=== PATIENT | male | born 1955 | race Caucasian/White ===

== ENCOUNTER 2017-04-20 07:38 | Emergency (ER) | payer OTHER ==
[2017-04-20] MEDS ORDERED: Diltiazem 180 MG Cap.CD PO ONE (08:03)
[2017-04-20] MEDS ORDERED: Diltiazem 25 MG/5 ML SDV IVPUSH ONE ×2 (08:03→09:23)
--- NOTE | 2017-04-20 08:07 | EDM.PDOC ---
ED HPI GENERAL MEDICAL PROBLEM - General Chief Complaint: Cardiovascular Problem Stated Complaint: AFIB Time Seen by Provider: 04/20/17 08:01 Source of Information: Reports: Patient, Family (spouse) History Limitations: Reports: No Limitations - History of Present Illness INITIAL COMMENTS - FREE TEXT/NARRATIVE: 61-year-old male presents to the ED with recurrent or breakthrough atrial fibrillation. Patient states his heart has been going in and out of atrial fibrillation since last April 15. States was quite bad all day yesterday with high rate. He does have some mild left precordial chest discomfort and shortness of breath. Patient has a history of chronic atrial fibrillation dating back to 2004. He had a ablation carried out in 2004 which was not successful in controlling rate. Second ablation was carried out in 2005 and he's been relatively good with occasional C breakthrough atrial fibrillation every few years since that time. He remains on sotalol 120 mg twice daily and coenzyme 1 80 mg CD daily. He is on a magnesium supplement, a statin and is on Eliquis twice a day. Does not feel dizzy or lightheaded when standing. Feels weak and extremities. Denies cough or sputum production. Onset: Unknown/Unsure Onset Date: 04/15/17 Duration: Day(s):, Intermittent, Waxing/Waning Location: Reports: Chest Quality: Reports: Same as Previous Episode Severity: Moderate Improves with: Reports: None Worsens with: Reports: None Context: Denies: Activity, Exercise, Lifting, Sick Contact, Trauma, Other Associated Symptoms: Reports: Chest Pain, Malaise. 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 Has been taking all of his normal medications as prescribed. No medications have been changed for several years.) - Related Data Allergies Allergy/AdvReac Type Severity Reaction Status Date / Time niacin Allergy Itching Verified 04/20/17 07:47 nortriptyline Allergy Other Verified 04/20/17 07:47 Home Meds: Home Meds Diltiazem HCl [Cardizem Cd] 360 mg PO DAILY #30 cap.er.24h 04/20/17 [Rx] Past Medical History Cardiovascular History: Reports: Afib (At ablation carried out 2004 and again in 2005 for atrial fibrillation. Intermittent. Is on Eliquis.), Arrhythmia, Hypertension Respiratory History: Reports: COPD Genitourinary History: Reports: BPH Musculoskeletal History: Reports: Osteoarthritis Social & Family History - Living Situation & Occupation Living situation: Reports: Occupation: Employed ED ROS GENERAL - Review of Systems Review Of Systems: See Below Constitutional: Reports: Weakness, Fatigue, Decreased Appetite. Denies: Fever, Chills, Malaise, Weight Loss HEENT: Reports: No Symptoms Respiratory: Reports: Shortness of Breath Cardiovascular: Reports: Chest Pain, Blood Pressure Problem (Mild left precordial chest discomfort.), Dyspnea on Exertion, Edema, Palpitations (Mild lower extremity edema.). Denies: Claudication, Orthopnea ( It has been elevated as of late) Endocrine: Reports: Fatigue GI/Abdominal: Reports: No Symptoms : Reports: Frequency, Other (Nocturia 3) Musculoskeletal: Reports: Joint Pain Skin: Reports: No Symptoms, Bruising Neurological: Reports: No Symptoms. Denies: Confusion, Dizziness, Headache, Numbness Psychiatric: Reports: No Symptoms Hematologic/Lymphatic: Reports: No Symptoms Immunologic: Reports: No Symptoms ED EXAM, GENERAL - Physical Exam Exam: See Below Exam Limited By: No Limitations General Appearance: Alert, WD/WN, No Apparent Distress Eye Exam: Bilateral Eye: Normal Inspection Throat/Mouth: Normal Inspection, Normal Lips, Normal Teeth, Normal Gums, Normal Oropharynx Head: Atraumatic, Normocephalic Neck: Normal Inspection, Supple, Non-Tender, Full Range of Motion. No: Lymphadenopathy (L), Lymphadenopathy (R) Respiratory/Chest: No Respiratory Distress, Lungs Clear, Normal Breath Sounds Cardiovascular: No Edema, No Gallop, Tachycardia (Current rate is 1 36/m.), Irregularly Irregular Peripheral Pulses: 1+: Posterior Tibial (L), Posterior Tibial (R), Dorsalis Pedis (L), Dorsalis Pedis (R) GI/Abdominal: Normal Bowel Sounds, Soft, Non-Tender, No Organomegaly Back Exam: Normal Inspection, Full Range of Motion. No: CVA Tenderness (L), CVA Tenderness (R) Extremities: Normal Inspection, Normal Range of Motion, Non-Tender, No Pedal Edema Neurological: Alert, Oriented, CN II-XII Intact, Normal Cognition, Normal Gait Psychiatric: Normal Affect, Normal Mood Skin Exam: Warm, Dry, Intact, Normal Color, No Rash EKG INTERPRETATION EKG Date: 04/20/17 Time: 07:50 Rhythm: A-Fib Rate (Beats/Min): 123 [place]: RAD-Right [place] Deviation P-Wave: Absent QRS: RBBB ST-T: Other (Excessively wondering baseline.) QT: Prolonged (Mildly prolonged) Course - Vital Signs Last Recorded V/S: Last Vital Signs Temp 36.9 C 04/20/17 07:47 Pulse 134 H 04/20/17 07:47 Resp 18 04/20/17 07:47 BP 133/115 H 04/20/17 07:47 Pulse Ox 94 L 04/20/17 07:47 - Orders/Labs/Meds Orders: Active Orders 24 hr Category Date Time Status EKG Documentation Completion [RC] ASDIRECTED Care 04/20/17 09:55 Active Sodium Chloride 0.9% [Normal Saline] 1,000 ml Med 04/20/17 08:15 Active IV ASDIRECTED EKG 12 Lead [EK] Stat Ther 04/20/17 09:54 Ordered Medication Orders Sodium Chloride (Normal Saline) 1,000 mls @ 100 mls/hr IV ASDIRECTED TERESO Last Admin: 04/20/17 08:46 Dose: 100 mls/hr Labs: Laboratory Tests 04/20/17 04/20/17 Range/Units 08:12 08:12 WBC 6.82 (4.23-9.07) K/mm3 RBC 5.74 (4.63-6.08) M/mm3 Hgb 17.4 (13.7-17.5) gm/L Hct 50.0 (40.1-51.0) % MCV 87.1 (79.0-92.2) fl MCH 30.3 (25.7-32.2) pg MCHC 34.8 (32.2-35.5) g/dl RDW Std Deviation 40.1 (35.1-43.9) fL Plt Count 212 (163-337) K/mm3 MPV 10.5 (9.4-12.3) fl Neutrophils % (Manual) 55 (40-60) % Band Neutrophils % 0 (0-10) % Lymphocytes % (Manual) 40 (20-40) % Atypical Lymphs % 0 % Monocytes % (Manual) 4 (2-10) % Eosinophils % (Manual) 1 (0.8-7.0) % Basophils % (Manual) 0 L (0.2-1.2) Platelet Estimate Adequate RBC Morph Comment Normal Sodium 138 (136-145) mEq/L Potassium 3.8 (3.5-5.1) mEq/L Chloride 103 (98-107) mEq/L Carbon Dioxide 23 (21-32) mEq/L Anion Gap 15.8 H (5-15) BUN 22 H (7-18) mg/dL Creatinine 1.2 (0.7-1.3) mg/dL Est Cr Clr Drug Dosing 76.28 mL/min Estimated GFR (MDRD) > 60 (>60) mL/min BUN/Creatinine Ratio 18.3 H (14-18) Glucose 117 H (80-115) mg/dL Calcium 9.3 (8.5-10.1) mg/dL Magnesium 1.9 (1.8-2.4) mg/dl Total Bilirubin 1.0 (0.2-1.0) mg/dL AST 26 (15-37) U/L ALT 32 (16-63) U/L Alkaline Phosphatase 81 (46-116) U/L NT-Pro-B Natriuret Pep 733 H (0-125) pg/mL Total Protein 7.1 (6.4-8.2) g/dl Albumin 3.5 (3.4-5.0) g/dl Globulin 3.6 gm/dL Albumin/Globulin Ratio 1.0 (1-2) TSH 3rd Generation 3.052 (0.358-3.74) uIU/mL Ethyl Alcohol 0.00 (0.00) gm% Meds: Medications Generic Name Dose Route Start Last Admin Trade Name Freq PRN Reason Stop Dose Admin Sodium Chloride 1,000 mls @ 100 mls/hr 04/20/17 08:15 04/20/17 08:46 Normal Saline IV 100 mls/hr ASDIRECTED TERESO Administration Discontinued Medications Generic Name Dose Route Start Last Admin Trade Name Freq PRN Reason Stop Dose Admin Diltiazem HCl 10 mg 04/20/17 08:03 04/20/17 08:24 Diltiazem IVPUSH 04/20/17 08:04 10 mg ONETIME ONE Administration Diltiazem HCl 180 mg 04/20/17 08:03 04/20/17 08:24 Cardizem Cd PO 04/20/17 08:04 180 mg ONETIME ONE Administration Diltiazem HCl 10 mg 04/20/17 09:23 04/20/17 09:43 Diltiazem IVPUSH 04/20/17 09:24 10 mg ONETIME ONE Administration Furosemide 40 mg 04/20/17 09:25 04/20/17 09:43 Lasix IVPUSH 04/20/17 09:26 40 mg NOW ONE Administration - Re-Assessments/Exams Free Text/Narrative Re-Assessment/Exam: 04/20/17 09:25 Labs reveal a white count of 6.82. Hemoglobin is elevated at 17.4 with hematocrit of 50 indicating some degree of hemoconcentration. Platelets are 212,000. Neutrophils 55% and 40% lymphocytes. Sodium is 138. Potassium 3.8. Cord 103. Bicarbonate 23. And a gap is slightly elevated at 15.8. BUNs 22 creatinine is 1.2. EGFR is greater than 60. BUN/creatinine ratio is 18.3 glucose 117. Calcium 9.3. BNP is mildly elevated at 733. Magnesium normal at 1.9. Liver function normal. TSH is normal at 3.05 to blood alcohol is 0. Free Text/Narrative Re-Assessment/Exam: 04/20/17 09:26 patient does have increased fluid retention with a BNP of 733. Rate is anywhere free from 82-120/m. I'm going to give him further Cardizem 10 mg IV bolus Lasix 40 mg IV. 04/20/17 10:38 patient is converted back to sinus rhythm in the 50s. BP is 137/ 91. Going to increase his Cardizem to 180 mg CD twice daily since he has a full bottle of medication. I will then write a prescription for the 360 mg dose once daily. His cardiology appointment is not until 11 June. He will of course return to the ED if he has rapid atrial fibrillation again. Departure - Departure Time of Disposition: 10:39 Disposition: Home, Self-Care 01 Condition: Fair Clinical Impression: Paroxysmal atrial fibrillation with RVR Prescriptions: Diltiazem HCl [Cardizem Cd] 360 mg PO DAILY #30 cap.er.24h Referrals: Ashlie Duckworth DO [Primary Care Provider] - Forms: ED Department Discharge, ED Return to Work/School Form Additional Instructions: Evaluation in the emergency department today in regards to atrial fibrillation with rapid ventricular response as high as 160s at times. History of ablation in 2004 and 2005 for this problem and continued use of sotalol 120 mg twice daily and Cardia zyme 180 mg CD preparation daily for rate control. You have appreciated paroxysmal intermittent atrial fibrillation since the ablations. Today were treated with Cardia zyme 10 mg IV on 2 occasions and you did convert to sinus rhythm at approximately 1030 hrs. today. At this time I would suggest increasing her Cardia zyme 180 mg CD preparation to twice daily use and then I did write a prescription for the 360 mg which she would only have to take once a day. Follow-up with cardiology the end of May as planned. Of course return to the ED if you have further problems with atrial fibrillation with rapid ventricular rate. Continue all other medications as previously prescribed. You were found to have increased fluid buildup in her lungs because of the rapid atrial fibrillation rate. You're given Lasix 40 mg IV which will cause you to have increased voiding for the next 3-4 hours. Once the heart rate is under control little will play catch up over the next day or 2 and fluid will be taken out of the lungs. Off work today tentatively May return to work tomorrow. - My Orders Last 24 Hours: My Active Orders 04/20/17 08:15 Sodium Chloride 0.9% [Normal Saline] 1,000 ml IV ASDIRECTED 04/20/17 09:54 EKG 12 Lead [EK] Stat 04/20/17 09:55 EKG Documentation Completion [RC] ASDIRECTED - Assessment/Plan Last 24 Hours: My Active Orders 04/20/17 08:15 Sodium Chloride 0.9% [Normal Saline] 1,000 ml IV ASDIRECTED 04/20/17 09:54 EKG 12 Lead [EK] Stat 04/20/17 09:55 EKG Documentation Completion [RC] ASDIRECTED
[2017-04-20] MEDS ORDERED: Sodium Chloride 0.9% 1,000 ML IV SCH (08:15)
[2017-04-20] MEDS ORDERED: Furosemide 40 MG/4 ML VIAL IVPUSH ONE (09:25)
== END 2017-04-20 10:55 | disposition home or self-care (01) ==
LOC: JD.ED 07:38
DX: I48.0 Paroxysmal atrial fibrillation (principal); Z88.8 Allergy status to other drugs, medicaments and biological substances
CPT/HCPCS: 36415; 80053; 83735; 83880; 84443; 85025; 93005; 96361; 96374; 96375; 96376; 99285; A9270; G0480; J1940; J3490; J7040; 99284-25

== ENCOUNTER 2019-08-09 12:29 | Emergency (ER) | payer OTHER ==
--- NOTE | 2019-08-09 12:43 | EDM.PDOC ---
ED HPI GENERAL MEDICAL PROBLEM - General Chief Complaint: Chest Pain Stated Complaint: CHEST PAIN Time Seen by Provider: 08/09/19 12:42 Source of Information: Reports: Patient, RN Notes Reviewed - History of Present Illness INITIAL COMMENTS - FREE TEXT/NARRATIVE: 64-year-old male has had a dull ache across the center area of his chest for the last 3 days. The pain does not radiate to shoulder arm neck or back. He has not been ill with no recent cough fever or chills. Not feel short of breath. Does have history of atrial fib and wonders if he has been in atrial fib this last few days. Has had some upper abdominal discomfort that has been annoying for the past several wks. No nausea or vomiting. He does smoke cigars. He also admits to quite heavy alcohol usage but has been off alcohol for the last 4 days. Left Chest Pain Score (Numeric/FACES): 4 - Related Data Allergies Allergy/AdvReac Type Severity Reaction Status Date / Time niacin Allergy Itching Verified 08/09/19 12:39 nortriptyline Allergy Other Verified 08/09/19 12:39 Home Meds: Home Meds Apixaban [Eliquis] 5 mg PO BID 03/21/18 [History] Viagra 50 mg PO ASDIRECTED 03/21/18 [History] atorvaSTATin Calcium [Atorvastatin Calcium] 80 mg PO DAILY 03/21/18 [History] Diltiazem HCl [Cardizem Cd] 180 mg PO BID 04/13/18 [History] Multivitamin [Daily Glo] 1 tab PO BID 08/09/19 [History] Past Medical History Cardiovascular History: Reports: Afib, Arrhythmia, Hypertension Other Cardiovascular History: a flutter, bigemony, ablasions x2 right atria 2004 , and left atria 2005 Respiratory History: Reports: COPD Genitourinary History: Reports: BPH Musculoskeletal History: Reports: Osteoarthritis Endocrine/Metabolic History: Reports: Obesity/BMI 30+ Hematologic History: Reports: Anticoagulation Therapy Oncologic (Cancer) History: Reports: Other (See Below) Other Oncologic History: skin cancer on nose. - Past Surgical History Cardiovascular Surgical History: Reports: Cardiac Ablation Social & Family History - Family History Family Medical History: Noncontributory - Caffeine Use Caffeine Use: Reports: Coffee Other Caffeine Use: 3 cups of coffee a day. - Living Situation & Occupation Living situation: Reports: Occupation: Employed ED ROS GENERAL - Review of Systems Review Of Systems: See Below Constitutional: Denies: Fever, Chills HEENT: Denies: Throat Pain Respiratory: Denies: Shortness of Breath, Pleuritic Chest Pain Cardiovascular: Reports: Chest Pain, Palpitations. Denies: Edema GI/Abdominal: Reports: Abdominal Pain (Mild achiness off and on for the last 2 days upper abdominal discomfort more than usual for the past several weeks). Denies: Diarrhea, Nausea, Vomiting Musculoskeletal: Denies: Shoulder Pain, Arm Pain, Back Pain Skin: Reports: No Symptoms Neurological: Reports: No Symptoms ED EXAM, GENERAL - Physical Exam Exam: See Below General Appearance: Alert, No Apparent Distress Eye Exam: Bilateral Eye: PERRL Throat/Mouth: Normal Inspection, Normal Oropharynx Head: Atraumatic Neck: Supple, Other (No JVD) Respiratory/Chest: No Respiratory Distress, Lungs Clear, Normal Breath Sounds. No: Rhonchi, Wheezing Cardiovascular: Regular Rate, Rhythm GI/Abdominal: Soft. No: Non-Tender, Guarding, Rebound Back Exam: No: CVA Tenderness (L), CVA Tenderness (R) Extremities: Normal Inspection, Normal Range of Motion Neurological: Alert, Oriented, No Motor/Sensory Deficits Skin Exam: Warm, Dry, Normal Color EKG INTERPRETATION EKG Date: 08/09/19 Rhythm: NSR P-Wave: Present QRS: RBBB ST-T: Other (T wave inversions V3, 4 and 5) Course - Vital Signs Last Recorded V/S: Last Vital Signs Temp 97 F 08/09/19 12:36 Pulse 73 08/09/19 12:36 Resp 18 08/09/19 12:36 BP 170/102 H 08/09/19 12:36 Pulse Ox 97 08/09/19 12:36 - Orders/Labs/Meds Orders: Active Orders 24 hr Category Date Time Status EKG 12 Lead [EKG Documentation Completion] [RC] STAT Care 08/09/19 12:50 Active Peripheral IV Care [RC] . DIRECTED Care 08/09/19 12:50 Active Sodium Chloride 0.9% [Saline Flush] Med 08/09/19 12:49 Active 10 ml FLUSH ASDIRECTED PRN Peripheral IV Insertion Adult [OM.PC] Stat Oth 08/09/19 12:50 Ordered Medication Orders Sodium Chloride (Saline Flush) 10 ml FLUSH ASDIRECTED PRN PRN Reason: Keep Vein Open Last Admin: 08/09/19 12:54 Dose: 10 ml Labs: Laboratory Tests 08/09/19 08/09/19 08/09/19 Range/Units 12:45 12:45 12:45 WBC 5.10 (4.23-9.07) K/mm3 RBC 5.09 (4.63-6.08) M/mm3 Hgb 15.9 (13.7-17.5) gm/dl Hct 46.8 (40.1-51.0) % MCV 91.9 (79.0-92.2) fl MCH 31.2 (25.7-32.2) pg MCHC 34.0 (32.2-35.5) g/dl RDW Std Deviation 42.8 (35.1-43.9) fL Plt Count 183 (163-337) K/mm3 MPV 10.0 (9.4-12.3) fl Neut % (Auto) 70.0 H (34.0-67.9) % Lymph % (Auto) 11.0 L (21.8-53.1) % Terry % (Auto) 14.7 H (5.3-12.2) % Eos % (Auto) 3.7 (0.8-7.0) Baso % (Auto) 0.2 (0.1-1.2) % Neut # (Auto) 3.57 (1.78-5.38) K/mm3 Lymph # (Auto) 0.56 L (1.32-3.57) K/mm3 Terry # (Auto) 0.75 (0.30-0.82) K/mm3 Eos # (Auto) 0.19 (0.04-0.54) K/mm3 Baso # (Auto) 0.01 (0.01-0.08) K/mm3 Sodium 140 (136-145) mEq/L Potassium 3.7 (3.5-5.1) mEq/L Chloride 104 (98-107) mEq/L Carbon Dioxide 22 (21-32) mEq/L Anion Gap 17.7 H (5-15) BUN 20 H (7-18) mg/dL Creatinine 1.3 (0.7-1.3) mg/dL Est Cr Clr Drug Dosing 67.71 mL/min Estimated GFR (MDRD) 55 (>60) mL/min BUN/Creatinine Ratio 15.4 (14-18) Glucose 104 (80-115) mg/dL Calcium 8.8 (8.5-10.1) mg/dL Total Bilirubin 0.4 (0.2-1.0) mg/dL AST 25 (15-37) U/L ALT 44 (16-63) U/L Alkaline Phosphatase 88 (46-116) U/L Troponin I < 0.017 (0.00-0.056) ng/mL Total Protein 7.3 (6.4-8.2) g/dl Albumin 3.6 (3.4-5.0) g/dl Globulin 3.7 gm/dL Albumin/Globulin Ratio 1.0 (1-2) Lipase 2172 H (73-393) U/L Meds: Medications Generic Name Dose Route Start Last Admin Trade Name Freq PRN Reason Stop Dose Admin Sodium Chloride 10 ml 08/09/19 12:49 08/09/19 12:54 Saline Flush FLUSH 10 ml ASDIRECTED PRN Administration Keep Vein Open Discontinued Medications Generic Name Dose Route Start Last Admin Trade Name Freq PRN Reason Stop Dose Admin Diatrizoate Meglum/Diatrizoate Sod 90 ml 08/09/19 15:54 08/09/19 15:55 Gastrografin 37% PO 08/09/19 15:55 90 ml ONETIME ONE Administration Iopamidol 25 ml 08/09/19 15:54 08/09/19 15:55 Isovue-300 (61%) IVPUSH 08/09/19 15:55 25 ml ONETIME ONE Administration Iopamidol 100 ml 08/09/19 15:54 08/09/19 15:55 Isovue-300 (61%) IVPUSH 08/09/19 15:55 100 ml ONETIME ONE Administration Sodium Chloride 10 ml 08/09/19 15:54 08/09/19 15:55 Saline Flush FLUSH 08/09/19 15:55 10 ml ONETIME ONE Administration - Re-Assessments/Exams Free Text/Narrative Re-Assessment/Exam: 08/09/19 17:38 Lipase came back elevated at around 2200. His Trop was normal. Chest x-ray did not show acute disease. CT abdomen pelvis was done showed mild pancreatic inflammation. Also showed a small or at least part of a small 9 mm nodule left lower lung base. Non emergent CT of chest recommended. Patient has not been having enough pain that he feels he needs any pain medication. He strongly feels up to going home. States coming off alcohol is not hard for him, he is not experiencing any withdrawal symptoms and is now been without alcohol for 4 days. I have discussed to the 9 mm nodule left lung base and need for nonemergent noncontrast CT of chest. To get that approved by the [facility] before getting that done. I have advised he follow-up at the [facility] in 2 to 3 days for recheck. Discharge instructions as documented. Departure - Departure Time of Disposition: 16:36 Disposition: Home, Self-Care 01 Condition: Fair Clinical Impression: Atypical chest pain, Lung nodule Pancreatitis Qualifiers: Chronicity: acute Pancreatitis type: unspecified pancreatitis type Acute pancreatitis complication: unspecified Qualified Code(s): K85.90 - Acute pancreatitis without necrosis or infection, unspecified Instructions: Acute Pancreatitis, [id number] Referrals: Roxana Suazo MD [Primary Care Provider] - Forms: ED Department Discharge Additional Instructions: Continue to avoid further alcohol, drink plenty of water and other fluids to maintain hydration, continue current medications as prescribed, Tylenol every 6 to 8 hours if needed for discomfort. [facility] for recheck, call for appointment. There was a small 9 mm nodule visualized left lung base which should have follow-up nonemergent noncontrast chest CT to better clarify. Return to ED as needed if symptoms worsening in any way. Sepsis Event Note - Evaluation Sepsis Screening Result: No Definite Risk - Focused Exam Vital Signs: Vital Signs Temp Pulse Resp BP Pulse Ox 08/09/19 12:36 97 F 73 18 170/102 H 97 Date Exam was Performed: 08/09/19 Time Exam was Performed: 17:31 - My Orders Last 24 Hours: My Active Orders 08/09/19 12:49 Sodium Chloride 0.9% [Saline Flush] 10 ml FLUSH ASDIRECTED PRN 08/09/19 12:50 EKG 12 Lead [EKG Documentation Completion] [RC] STAT Peripheral IV Care [RC] . DIRECTED Peripheral IV Insertion Adult [OM.PC] Stat - Assessment/Plan Last 24 Hours: My Active Orders 08/09/19 12:49 Sodium Chloride 0.9% [Saline Flush] 10 ml FLUSH ASDIRECTED PRN 08/09/19 12:50 EKG 12 Lead [EKG Documentation Completion] [RC] STAT Peripheral IV Care [RC] . DIRECTED Peripheral IV Insertion Adult [OM.PC] Stat
[2019-08-09] MEDS ORDERED: Sodium Chloride 0.9% 10 ML Syringe FLUSH PRN (12:49)
--- NOTE | 2019-08-09 14:49 | CR ---
Chest: Portable view of the chest was obtained. Comparison: Prior chest x-ray of 04/13/18. Heart size is slightly generous but accentuated portable technique. Tortuous thoracic aorta is seen. Lungs are clear with no acute parenchymal change. Bony structures are grossly intact. Impression: 1. Nothing acute is appreciated on portable chest x-ray. Diagnostic code #2 This report was dictated in MDT
[2019-08-09] MEDS ORDERED: Sodium Chloride 0.9% 10 ML Syringe FLUSH ONE (15:54)
[2019-08-09] MEDS ORDERED: Iopamidol 612 MG/ML 50 ML SDV IVPUSH ONE (15:54)
[2019-08-09] MEDS ORDERED: Iopamidol 612 MG/ML 100 ML Bottle IVPUSH ONE (15:54)
[2019-08-09] MEDS ORDERED: Diatrizoate Meglumine/Diatrizoate Sodium 37% 120 ML Bottle PO ONE (15:54)
--- NOTE | 2019-08-09 16:19 | CT ---
CT abdomen and pelvis Technique: Multiple axial sections were obtained from above the dome of the diaphragm inferiorly through the pubic symphysis. Intravenous and oral contrast was utilized. Delayed images were obtained through the pelvis. Comparison: No prior abdominal imaging. Findings: Visualized lung bases shows a partially visualized nodule adjacent to the left heart measuring 9 mm which shows no abnormal calcifications. Liver shows no focal parenchymal abnormality. Spleen appears within normal limits. Adrenal glands show no nodule. Gallbladder contains no calcified gallstones. Kidneys show symmetric contrast enhancement without hydronephrosis or mass. Minimal inflammatory change is noted around the pancreas compatible with mild pancreatitis. No intra-pancreatic abnormality is appreciated. Aorta shows no aneurysm. No retroperitoneal adenopathy or mesenteric abnormalities are seen. No pelvic mass or adenopathy is seen. No free fluid is seen. Appendix is seen and is within the right upper quadrant and appears normal in size. Bone window settings were reviewed which shows scattered degenerative change within the spine. Small fat-containing umbilical hernia is noted. Impression: 1. Findings compatible with mild pancreatitis. 2. Nodule within the left lung base measuring [address] is recommended which can be performed non-emergently if desired. 3. Other findings believed to be nonacute as noted above. Diagnostic code #9 This report was dictated in MDT
== END 2019-08-09 16:50 | disposition home or self-care (01) ==
LOC: JD.ED 12:29
DX: R07.89 Other chest pain (principal); K85.90 Acute pancreatitis without necrosis or infection, unspecified; R91.1 Solitary pulmonary nodule; I10 Essential (primary) hypertension; I48.91 Unspecified atrial fibrillation; J44.9 Chronic obstructive pulmonary disease, unspecified; M19.90 Unspecified osteoarthritis, unspecified site; E66.9 Obesity, unspecified; Z68.37 Body mass index [BMI] 37.0-37.9, adult; Z79.01 Long term (current) use of anticoagulants; Z88.8 Allergy status to other drugs, medicaments and biological substances; Z79.899 Other long term (current) drug therapy
CPT/HCPCS: 36415; 71045; 74177; 80053; 83690; 84484; 85025; 93005; 99285; Q9963; Q9967; 93010; 99284

== ENCOUNTER 2020-03-19 11:47 | Emergency (ER) | payer OTHER ==
[2020-03-19] MEDS ORDERED: Sodium Chloride 0.9% 10 ML Syringe FLUSH PRN (12:16)
[2020-03-19] MEDS ORDERED: Alum Hydrox/Mag Hydrox/Simeth 30 ML, Lidocaine 2% 15 ML PO ONE ×2 (12:21)
--- NOTE | 2020-03-19 12:23 | EDM.PDOC ---
ED HPI GENERAL MEDICAL PROBLEM - General Chief Complaint: General Stated Complaint: STOMACH PAIN Time Seen by Provider: 03/19/20 12:07 Source of Information: Reports: Patient, RN Notes Reviewed History Limitations: Reports: No Limitations - History of Present Illness INITIAL COMMENTS - FREE TEXT/NARRATIVE: Patient is a 64-year-old male who presents to the ED for evaluation of a few different complaints. He notes he was seen in this ER this last spring, for similar symptoms, at that time he was found to have acute pancreatitis, along with a 9 mm lung nodule appreciated. He has not followed up with his provider regarding a repeat CT scan for the lung nodule. He states that over the last few days, he has been having upper abdomen pain that radiates to his back that is gotten intense, so much so that he cannot sleep much due to the discomfort. He does have a history of atrial fibrillation, with ablation done 10 years ago. He most currently has a Holter monitor on, regarding medication changes, to see if they can keep the atrial fibrillation under good rate control. He notes that he is also having left upper chest discomfort that does seem to radiate to his back as well. He denies any trauma to this area. He does point to his right upper quadrant being most as a source of his pain, and this is most tender on palpation. He has been using Tylenol for pain management but nothing seems to make this better. He states is a very dull ache. He denies any history of reflux. He has not had any fevers or chills, cough or shortness of breath, nausea vomiting or diarrhea. He states he has been able to eat and drink okay. He states he smokes cigars, but denies any other alcohol use or drug use. He does state that the pain is very similar to the pain he had in the spring when he came to the ER for evaluation. Right Abdomen Pain Score (Numeric/FACES): 6 Left Chest Pain Score (Numeric/FACES): 5 - Related Data Allergies Allergy/AdvReac Type Severity Reaction Status Date / Time niacin Allergy Itching Verified 03/19/20 12:06 nortriptyline Allergy Other Verified 03/19/20 12:06 Home Meds: Home Meds Apixaban [Eliquis] 5 mg PO BID 03/21/18 [History] Viagra 50 mg PO ASDIRECTED 03/21/18 [History] atorvaSTATin Calcium [Atorvastatin Calcium] 80 mg PO DAILY 03/21/18 [History] dilTIAZem HCL [Cardizem Cd] 180 mg PO BID 04/13/18 [History] Multivitamin [Daily Glo] 1 tab PO BID 08/09/19 [History] Past Medical History Cardiovascular History: Reports: Afib, Arrhythmia, Hypertension Other Cardiovascular History: a flutter, bigemony, ablations x2 right atria 2004, and left atria 2005 Respiratory History: Reports: COPD Gastrointestinal History: Reports: Pancreatitis Genitourinary History: Reports: BPH Musculoskeletal History: Reports: Osteoarthritis Endocrine/Metabolic History: Reports: Obesity/BMI 30+ Hematologic History: Reports: Anticoagulation Therapy Oncologic (Cancer) History: Reports: Other (See Below) Other Oncologic History: skin cancer on nose. - Infectious Disease History Infectious Disease History: Reports: Chicken Pox - Past Surgical History HEENT Surgical History: Reports: Naso-Sinus Surgery, Tonsillectomy Cardiovascular Surgical History: Reports: Cardiac Ablation Social & Family History - Family History Family Medical History: Noncontributory - Tobacco Use Tobacco Use Status *Q: Current Every Day Tobacco User Years of Tobacco use: 10 Packs/Tins Daily: 1 - Caffeine Use Caffeine Use: Reports: Coffee Other Caffeine Use: 3 cups of coffee a day. - Alcohol Use Date of Last Drink: 01/17/20 - Recreational Drug Use Recreational Drug Use: No - Living Situation & Occupation Living situation: Reports: Occupation: Employed ED ROS GENERAL - Review of Systems Review Of Systems: Comprehensive ROS is negative, except as noted in HPI. ED EXAM, GENERAL - Physical Exam Exam: See Below Exam Limited By: No Limitations General Appearance: Alert, WD/WN, No Apparent Distress Eye Exam: Bilateral Eye: EOMI, Normal Inspection, PERRL Throat/Mouth: Normal Inspection, Normal Lips, Normal Teeth, Normal Gums, Normal Oropharynx, Normal Voice, No Airway Compromise Head: Atraumatic, Normocephalic Neck: Normal Inspection Respiratory/Chest: No Respiratory Distress, Lungs Clear, Normal Breath Sounds, No Accessory Muscle Use, Chest Non-Tender Cardiovascular: Normal Peripheral Pulses, Regular Rate, Rhythm, No Murmur Peripheral Pulses: 2+: Radial (L), Radial (R) GI/Abdominal: Normal Bowel Sounds, Soft, No Distention, No Mass, Tender (RUQ/epigastrium mainly) Extremities: Normal Inspection, Normal Capillary Refill Neurological: Alert, Oriented, Normal Cognition, No Motor/Sensory Deficits Psychiatric: Normal Affect, Normal Mood Skin Exam: Warm, Dry, Intact, Normal Color, No Rash #1 Interpretation EKG Date: 03/19/20 Time: 12:43 Rhythm: A-Fib Rate (Beats/Min): 72 [place]: Normal P-Wave: Absent QRS: RBBB ST-T: Normal QT: Normal Comparison: No Change (reviewed from 08/09/2019) EKG Interpretation Comments: No obvious ischemia or acute ST changes noted, reviewed by myself and Dr. Babin. Course - Vital Signs Last Recorded V/S: Last Vital Signs Temp 97.9 F 03/19/20 11:59 Pulse 76 03/19/20 11:59 Resp 20 03/19/20 11:59 BP 160/96 H 03/19/20 11:59 Pulse Ox 99 03/19/20 11:59 - Orders/Labs/Meds Orders: Active Orders 24 hr Category Date Time Status EKG Documentation Completion [RC] STAT Care 03/19/20 12:16 Active Influenza Vaccine Charge [RC] .DISCHARGE Care 03/19/20 12:09 Active Peripheral IV Care [RC] . DIRECTED Care 03/19/20 12:16 Active CBC WITH AUTO DIFF [HEME] Stat Lab 03/19/20 12:35 Results Sodium Chloride 0.9% [Saline Flush] Med 03/19/20 12:16 Active 10 ml FLUSH ASDIRECTED PRN Peripheral IV Insertion Adult [OM.PC] Stat Oth 03/19/20 12:16 Ordered Medication Orders Sodium Chloride (Saline Flush) 10 ml FLUSH ASDIRECTED PRN PRN Reason: Keep Vein Open Last Admin: 03/19/20 12:35 Dose: 10 ml Documented by: YASMIN Labs: Laboratory Tests 03/19/20 03/19/20 03/19/20 Range/Units 12:30 12:35 12:35 WBC 6.47 (4.23-9.07) K/mm3 RBC 5.62 (4.63-6.08) M/mm3 Hgb 16.7 (13.7-17.5) gm/dl Hct 50.1 (40.1-51.0) % MCV 89.1 (79.0-92.2) fl MCH 29.7 (25.7-32.2) pg MCHC 33.3 (32.2-35.5) g/dl RDW Std Deviation 45.4 H (35.1-43.9) fL Plt Count 176 (163-337) K/mm3 MPV 10.7 (9.4-12.3) fl Neut % (Auto) 60.8 (34.0-67.9) % Lymph % (Auto) 17.6 L (21.8-53.1) % [place] % (Auto) 19.2 H (5.3-12.2) % Eos % (Auto) 1.9 (0.8-7.0) Baso % (Auto) 0.2 (0.1-1.2) % Neut # (Auto) 3.94 (1.78-5.38) K/mm3 Lymph # (Auto) 1.14 L (1.32-3.57) K/mm3 [place] # (Auto) 1.24 H (0.30-0.82) K/mm3 Eos # (Auto) 0.12 (0.04-0.54) K/mm3 Baso # (Auto) 0.01 (0.01-0.08) K/mm3 PT 10.7 (9.7-12.0) SECONDS INR 1.00 APTT 28.0 (21.7-31.4) SECONDS Sodium (136-145) mEq/L Potassium (3.5-5.1) mEq/L Chloride (98-107) mEq/L Carbon Dioxide (21-32) mEq/L Anion Gap (5-15) BUN (7-18) mg/dL Creatinine (0.7-1.3) mg/dL Est Cr Clr Drug Dosing mL/min Estimated GFR (MDRD) (>60) mL/min BUN/Creatinine Ratio (14-18) Glucose (80-115) mg/dL Calcium (8.5-10.1) mg/dL Magnesium (1.8-2.4) mg/dl Total Bilirubin (0.2-1.0) mg/dL AST (15-37) U/L ALT (16-63) U/L Alkaline Phosphatase (46-116) U/L Troponin I (0.00-0.056) ng/mL NT-Pro-B Natriuret Pep (0-125) pg/mL Total Protein (6.4-8.2) g/dl Albumin (3.4-5.0) g/dl Globulin gm/dL Albumin/Globulin Ratio (1-2) Lipase (73-393) U/L Urine Color Yellow (Yellow) Urine Appearance Clear (Clear) Urine pH 6.5 (5.0-8.0) Ur Specific [place] 1.015 (1.005-1.030) Urine Protein Negative (Negative) Urine Glucose (UA) Negative (Negative) Urine Ketones Negative (Negative) Urine Occult Blood Negative (Negative) Urine Nitrite Negative (Negative) Urine Bilirubin Negative (Negative) Urine Urobilinogen 0.2 (0.2-1.0) Ur Leukocyte Esterase Negative (Negative) Urine RBC 0-5 (0-5) /hpf Urine WBC 0-5 (0-5) /hpf Ur Epithelial Cells Not seen (0-5) /hpf Urine Bacteria Rare (FEW) /hpf Urine Mucus Not seen (FEW) /hpf 03/19/20 03/19/20 Range/Units 12:35 12:35 WBC (4.23-9.07) K/mm3 RBC (4.63-6.08) M/mm3 Hgb (13.7-17.5) gm/dl Hct (40.1-51.0) % MCV (79.0-92.2) fl MCH (25.7-32.2) pg MCHC (32.2-35.5) g/dl RDW Std Deviation (35.1-43.9) fL Plt Count (163-337) K/mm3 MPV (9.4-12.3) fl Neut % (Auto) (34.0-67.9) % Lymph % (Auto) (21.8-53.1) % Crow[place] % (Auto) (5.3-12.2) % Eos % (Auto) (0.8-7.0) Baso % (Auto) (0.1-1.2) % Neut # (Auto) (1.78-5.38) K/mm3 Lymph # (Auto) (1.32-3.57) K/mm3 [place] # (Auto) (0.30-0.82) K/mm3 Eos # (Auto) (0.04-0.54) K/mm3 Baso # (Auto) (0.01-0.08) K/mm3 PT (9.7-12.0) SECONDS INR APTT (21.7-31.4) SECONDS Sodium 136 (136-145) mEq/L Potassium 4.2 (3.5-5.1) mEq/L Chloride 101 (98-107) mEq/L Carbon Dioxide 23 (21-32) mEq/L Anion Gap 16.2 H (5-15) BUN 16 (7-18) mg/dL Creatinine 1.1 (0.7-1.3) mg/dL Est Cr Clr Drug Dosing 80.02 mL/min Estimated GFR (MDRD) > 60 (>60) mL/min BUN/Creatinine Ratio 14.5 (14-18) Glucose 124 H (80-115) mg/dL Calcium 9.3 (8.5-10.1) mg/dL Magnesium 2.1 (1.8-2.4) mg/dl Total Bilirubin 0.5 (0.2-1.0) mg/dL AST 19 (15-37) U/L ALT 39 (16-63) U/L Alkaline Phosphatase 120 H (46-116) U/L Troponin I < 0.017 (0.00-0.056) ng/mL NT-Pro-B Natriuret Pep 809 H (0-125) pg/mL Total Protein 7.5 (6.4-8.2) g/dl Albumin 3.5 (3.4-5.0) g/dl Globulin 4.0 gm/dL Albumin/Globulin Ratio 0.9 L (1-2) Lipase 550 H (73-393) U/L Urine Color (Yellow) Urine Appearance (Clear) Urine pH (5.0-8.0) Ur Specific [place] (1.005-1.030) Urine Protein (Negative) Urine Glucose (UA) (Negative) Urine Ketones (Negative) Urine Occult Blood (Negative) Urine Nitrite (Negative) Urine Bilirubin (Negative) Urine Urobilinogen (0.2-1.0) Ur Leukocyte Esterase (Negative) Urine RBC (0-5) /hpf Urine WBC (0-5) /hpf Ur Epithelial Cells (0-5) /hpf Urine Bacteria (FEW) /hpf Urine Mucus (FEW) /hpf Meds: Medications Generic Name Dose Route Start Last Admin Trade Name Aurelia PRN Reason Stop Dose Admin Sodium Chloride 10 ml 03/19/20 12:16 03/19/20 12:35 Saline Flush FLUSH 10 ml ASDIRECTED PRN Administration Keep Vein Open Discontinued Medications Generic Name Dose Route Start Last Admin Trade Name Aurelia PRN Reason Stop Dose Admin Al Hydroxide/Mg Hydroxide 30 0 ml 03/19/20 12:21 03/19/20 12:42 ml/ Lidocaine HCl 15 ml PO 03/19/20 12:22 45 ml ONETIME ONE Administration Influenza Virus Vaccine 240 mcg 03/19/20 12:30 03/19/20 12:45 Fluzone High-Dose Quad 2020- IM 03/19/20 12:31 240 mcg .ONCE ONE Administration - Re-Assessments/Exams Free Text/Narrative Re-Assessment/Exam: 03/19/20 12:23 Patient presents to the ED for evaluation of his ongoing generalized symptoms. He will get some labs taken, chest x-ray we performed along with EKG for initial management. If the patient's lipase is indeed elevated, we will entertain the thought of a CT after some informed decision-making with the patient. He is not toxic looking, and he is denying any fevers or chills, is able to keep food and fluids down at this time. 03/19/20 13:13 Patient's chest x-ray is negative for any acute findings. 03/19/20 13:47 Patient's labs have returned, CBC is unremarkable, metabolic panel is essentially unremarkable as well. Lipase is mildly elevated at 550. Coagulation studies look to be within normal limits. Troponin is negative, BNP is elevated as well at 809. Urine is negative for any acute abnormalities as well. This could be early pancreatitis at this time. I will reassess the patient, and see if the GI cocktail seemed to help his discomfort, and then come up with a plan for the gentleman. Departure - Departure Time of Disposition: 13:53 Disposition: Home, Self-Care 01 Condition: Good Clinical Impression: Abdominal discomfort, epigastric, Elevated lipase, Elevated brain natriuretic peptide (BNP) level Acid reflux Qualifiers: Esophagitis presence: esophagitis presence not specified Qualified Code(s): K21.9 - Gastro-esophageal reflux disease without esophagitis - Discharge Information *PRESCRIPTION DRUG MONITORING PROGRAM REVIEWED*: No *COPY OF PRESCRIPTION DRUG MONITORING REPORT IN PATIENT KRYSTA: No Instructions: Indigestion, [id number], Food Choices for Gastroesophageal Reflux Disease, Adult, [id number] Referrals: Roxana Suazo MD [Primary Care Provider] - Forms: ED Department Discharge Additional Instructions: You were evaluated in the ER today for your ongoing upper abdomen pain and left chest discomfort. Your EKG did show that you are in atrial fibrillation, but the rate is controlled, please continue to wear your Holter monitor and follow-up with your manager interface as directed for further management of your medications regarding your cardiac status. You are not suffering from a heart attack at today's visit. Your BNP which is a marker for heart failure was a little bit elevated at 809, I would recommend talking with your primary care provider or manager interface about the possibility of starting on a water pill, or diuretic for management of this. Your abdomen pain is thought likely to be due to reflux, or an overproduction of acid within your stomach. As you did get some relief from the GI cocktail given at today's visit. Highly recommend you go to a pharmacy and brass pickler a medication called Prilosec or omeprazole, and take per remote encoding center manager's instructions on the back of the box. This may take up to 72 hours to take effect, you may bridge the effects of this medication with [id number] Pepcid as well, to help reduce the acid in your stomach until the Prilosec can start working. [facility] to evaluate the nodule that was found in the early spring of this year, as you have not done so yet. This would be just about right at the 6-month ruby to have this redone. You may do this on outpatient basis as you declined a CT at today's visit for further evaluation. Please return to the ER at any time if symptoms change or worsen. Sepsis Event Note (ED) - Evaluation Sepsis Screening Result: No Definite Risk - Focused Exam Vital Signs: Vital Signs Temp Pulse Resp BP Pulse Ox 03/19/20 11:59 97.9 F 76 20 160/96 H 99 - My Orders Last 24 Hours: My Active Orders 03/19/20 12:09 Influenza Vaccine Charge [RC] .DISCHARGE 03/19/20 12:16 EKG Documentation Completion [RC] STAT Peripheral IV Care [RC] . DIRECTED Sodium Chloride 0.9% [Saline Flush] 10 ml FLUSH ASDIRECTED PRN Peripheral IV Insertion Adult [OM.PC] Stat 03/19/20 12:35 CBC WITH AUTO DIFF [HEME] Stat - Assessment/Plan Last 24 Hours: My Active Orders 03/19/20 12:09 Influenza Vaccine Charge [RC] .DISCHARGE 03/19/20 12:16 EKG Documentation Completion [RC] STAT Peripheral IV Care [RC] . DIRECTED Sodium Chloride 0.9% [Saline Flush] 10 ml FLUSH ASDIRECTED PRN Peripheral IV Insertion Adult [OM.PC] Stat 03/19/20 12:35 CBC WITH AUTO DIFF [HEME] Stat
[2020-03-19] MEDS ORDERED: FLU Vacc QV2020-21(65YR UP)/PF 240 MCG/0.7 ML Syringe IM ONE (12:30)
--- NOTE | 2020-03-19 13:12 | CR ---
PROCEDURE INFORMATION: Exam: XR Chest, 2 Views Exam date and time: 03/19/2020 12:23 PM Age: 64 years old Clinical indication: Chest pain; Type not specified + TECHNIQUE: Imaging protocol: XR of the chest Views: 2 views. COMPARISON: CT Chest wo Cont 08/16/2019 8:59 AM FINDINGS: Lungs: Unremarkable. No consolidation. Pleural space: Unremarkable. No pleural effusion. No pneumothorax. Heart/Mediastinum: Unremarkable. No cardiomegaly. Bones/joints: Unremarkable. IMPRESSION: No acute findings. Thank you for allowing us to participate in the care of your patient. Dictated and Authenticated by: Kevin Hughes MD 03/19/2020 2:00 PM Central Time ([place] & [place]) JACQUIE
== END 2020-03-19 14:10 | disposition home or self-care (01) ==
LOC: JD.ED 11:47
DX: K21.9 Gastro-esophageal reflux disease without esophagitis (principal); I48.91 Unspecified atrial fibrillation; I10 Essential (primary) hypertension; J44.9 Chronic obstructive pulmonary disease, unspecified; E66.9 Obesity, unspecified; R74.8 Abnormal levels of other serum enzymes; F17.210 Nicotine dependence, cigarettes, uncomplicated; Z68.37 Body mass index [BMI] 37.0-37.9, adult; R79.89 Other specified abnormal findings of blood chemistry; Z88.8 Allergy status to other drugs, medicaments and biological substances; Z79.01 Long term (current) use of anticoagulants; Z23 Encounter for immunization; Z79.899 Other long term (current) drug therapy
CPT/HCPCS: 36415; 71046; 80053; 81001; 83690; 83735; 83880; 84484; 85025; 85610; 85730; 90471; 90662; 93005; 99284; A9270; G0008